=== PATIENT | male | born 1940 | race Caucasian/White ===

== ENCOUNTER 2019-05-20 12:19 | Emergency (ER) | payer MEDICARE ==
[~2019-05-20] VITALS: Ht 177.8 cm; Wt 102.1 kg
[~2019-05-20 12:19] MED LIST: AMLODIPINE BESYL5 MG; COUMADIN4 MG; EFFER-K 20 MEQ20 MEQ; LANOXIN125 MCG; LASIX20 MG; PRINIVIL10 MG; TOPROL XL25 MG
--- NOTE | 2019-05-20 12:37 | NUR ---
NOTIFIED RADIOLOGY FOR STAT CT BRAIN,C-SPINE, AND FACIAL.
[2019-05-20 12:47] LABS: BASOPHILS # (AUTO) 0.1 (0.0-0.1); BASOPHILS % 0.5 % (0.0-1.0); EOSINOPHILS % 0.2 % (0.0-6.0); HEMATOCRIT 45.9 % (38.2-49.6); HEMOGLOBIN 15.3 g/dL (14.0-18.0); LYMPHOCYTES # (AUTO) 2.8 (1.0-3.2); MEAN CORPUSCULAR HEMOGLOBIN 30.3 pg (28-32); MEAN CORPUSCULAR HGB CONC 33.3 g/dL (31-35); MEAN CORPUSCULAR VOLUME 90.9 fL (81-99); MONOCYTES # (AUTO) 0.7 (0.2-0.8); MONOCYTES % 5.9 % (4.4-11.3); NEUTROPHILS # (AUTO) 8.6 (2.1-6.9); NEUTROPHILS % 70.2 % (38.7-80.0); PLATELET COUNT 169 x10e3/uL (140-360); RED BLOOD COUNT 5.05 x10e6/uL (4.3-5.7); RED CELL DISTRIBUTION WIDTH 13.1 % (11.7-14.4)
[2019-05-20 13:18] LABS: INR 3.01
[2019-05-20 13:19] LABS: PARTIAL THROMBOPLASTIN TIME 53.7 seconds (23.8-35.5)
[2019-05-20 13:25] LABS: ALBUMIN 3.6 g/dL (3.5-5.0); ALBUMIN/GLOBULIN RATIO 0.9 (0.8-2.0); ANION GAP 14.9 mmol/L (8-16); CALCIUM 10.7 mg/dL (8.4-10.2); CREATININE, SERUM 1.77 mg/dL (0.72-1.25); POTASSIUM 3.9 mmol/L (3.5-5.1)
--- NOTE | 2019-05-20 14:12 | Diagnostic Imaging Report ---
Exams: Head, maxillofacial and cervical spine CTs without IV contrast History: Trauma, fall Comparison studies:None Technique: Axial images were obtained from the brain, face and cervical spine. Coronal and sagittal reconstructions obtained from the axial data. Dose modulation, iterative reconstruction, and/or weight based adjustment of the mA/kV was utilized to reduce the radiation dose to as low as reasonably achievable. Intravenous contrast: None Findings: Head CT: Soft tissues: Left frontal-paranasal soft tissue hematoma without underlying fracture. No retained hyperdense foreign body. Bones: No fractures, blastic or lytic lesions. Brain sulci: Mildly prominent. Ventricles: Compensatory dilatation. No hydrocephalus. Parenchyma: No mass, acute hemorrhage or acute or chronic cortical insults. 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 Sequela of hypertensive hemorrhage is a consideration. Small chronic lacunar infarcts present in the left paramedian gloria, head of the left caudate nucleus, within the left thalamus and possibly within the right lateral thalamus. A few additional scattered hypodensities in the supratentorial white matter which are nonspecific but are most compatible with chronic microvascular ischemic changes. Sellar/suprasellar region: No abnormalities Craniocervical junction: The foramen magnum is patent. No Chiari one malformation. Maxillofacial CT: Soft tissues: Left periorbital soft tissue hematoma. No retained hyperdense foreign body. Incidental circumscribed 10 mm nodule in the superficial left premaxillary soft soft tissues of the left cheek may be an epidermal inclusion cyst. Bones: No fractures or bony abnormalities. . Orbits: No abnormalities. Paranasal sinuses: Clear. Cervical spine CT: Fractures: None. Soft tissue injuries: None. Atlantoaxial articulation: Intact. Alignment: Normal lordosis. No scoliosis. Cervicomedullary junction: No abnormalities. Patent foramen magnum. Soft tissues: No abnormalities. Vertebrae: No fractures, infection or neoplasm. Degenerative changes: Multilevel disc degeneration, worse/moderate from C4 to C7. Prominent anterior marginal bridging osteophytes at C4-C5 indents the prevertebral soft tissues. Disc osteophyte complexes from C3 to C7 result in varying degrees of at least mild to moderate canal stenosis, worse/moderate at C5-C6. Advanced multilevel facet arthrosis. Varying degrees of moderate to severe degenerative foraminal stenosis bilaterally from C3 to C7 due to uncovertebral facet arthrosis. Incidental findings: Scattered calcified atherosclerosis with calcified plaque in the carotid bulbs, carotid siphons and in the vertebral arteries. IMPRESSION: Head CT: 1. Left frontal-periorbital soft tissue hematoma. No fracture. 2. No acute intracranial abnormalities. 3. Mild generalized parenchymal volume loss. 4. Mild chronic microvascular ischemic changes with chronic right subinsular insult and chronic lacunar infarcts as described Facial CT: 1. Left frontal-periorbital soft tissue hematoma. 2. No maxillofacial fracture. 3. Globe and lens appear intact. No retrobulbar hematoma. Cervical spine CT: 1. No cervical spine fracture or subluxation. 2. Advanced multilevel degenerative changes as described. 3. Ligament, spinal cord and or vascular abnormalities cannot be excluded on the basis of this examination. Signed by: Dr. Subhash Gonzalez M.D. on 05/20/2019 2:09 PM
[2019-05-20 15:21] LABS: BILIRUBIN,URINE NEGATIVE (NEGATIVE); KETONES,URINE NEGATIVE (NEGATIVE); LEUKOCYTE ESTERASE ,URINE NEGATIVE (NEGATIVE); NITRITE,URINE NEGATIVE (NEGATIVE); PROTEIN,URINE DIPSTICK NEGATIVE (NEGATIVE); URINE UROBILINOGEN 1 mg/dL (0.2 - 1)
[2019-05-20 15:24] LABS: CLARITY,URINE SL CLOUDY (CLEAR); COLOR,URINE YELLOW (YELLOW)
[2019-05-20 15:45] LABS: BACTERIA,URINE RARE /HPF; EPITHELIAL CELLS,URINE FEW /LPF; RBC,URINE 0-5 /HPF (0-5)
--- NOTE | 2019-05-20 16:00 | NUR ---
entered room to discharge patient. was stopped by family stating that they were talking with pt's pcp about POC. advised er md that patient's family was objecting to discharge at this time.
--- NOTE | 2019-05-20 16:35 | NUR ---
MET WITH PT AND FAMILY, FAMILY STATES NOT SO WORRIED ABOUT VOICES OR HIS ACTUAL PARANOIA ABOUT PHONE CALLS AND PERSON AT NIGHT, PT [facility] AT [facility]. STATES HE SIMPLY TRIPPED OVER HIS WALKING STICK, NOT FROM HEARING ANYTHING. SON AND DAUGHTER IN ROOM WITH PT. ALL AGREE HE DOES NOT NEED TO BE SEEN BY MAT TEAM. THE BOYS ARE GOING TO TAKE HIM [employer] SHOWER AND CHANGE AND THEN TAKE TO HIS DAUGHTER HOME AND HE ALREADY HAS A FOLLOW UP APPOINTMENT WITH DR RIZZO ON THURSDAY THAT THEY WILL KEEP AND FOLLOW UP WITH THE OTHER OUTPATIENT ISSUES. NOTIFIED MD AND CONFIRMED WITH ALL PARTIES TOGETHER, PT WILL DISCHARGE WITH FAMILY.
== END 2019-05-20 16:51 | disposition home or self-care (01) ==
LOC: ER 12:27
DX: S00.12XA Contusion of left eyelid and periocular area, initial encounter (principal); H57.12 Ocular pain, left eye; W18.09XA Striking against other object with subsequent fall, initial encounter; Y93.01 Activity, walking, marching and hiking; Y92.003 Bedroom of unspecified non-institutional (private) residence as the place of occurrence of the external cause; Z79.01 Long term (current) use of anticoagulants
CPT/HCPCS: 36415; 70450; 70486; 72125; 80053; 81001; 85025; 85610; 85730; 99284

== ENCOUNTER → 2019-05-24 | Outpatient (CLI) | payer MEDICARE ==
--- NOTE | 2019-05-24 13:34 | Diagnostic Imaging Report ---
EXAMINATION: CHEST 2 VIEWS INDICATION: Shortness of breath, chest congestion COMPARISON: None FINDINGS: LINES/TUBES:None LUNGS:The lungs are well-inflated. No focal consolidation or pulmonary edema. PLEURA:No pleural effusion or pneumothorax. MEDIASTINUM:The cardiomediastinal silhouette appears normal in size and shape. Atherosclerotic calcifications of the thoracic aorta. BONES/SOFT TISSUES:No acute osseous injury. ABDOMEN:No free air under the diaphragm. IMPRESSION: No focal pneumonia or pulmonary edema. Signed by: Lorie Maciel MD on 05/24/2019 1:31 PM
== END ==
LOC: RAD 12:46
DX: R09.89 Other specified symptoms and signs involving the circulatory and respiratory systems (principal)
CPT/HCPCS: 71046